=== PATIENT | female | born 1990 | race African-American/Black ===

== ENCOUNTER 2021-04-14 11:05 | Emergency (ER) | payer OTHER ==
[~2021-04-14] VITALS: Ht 180.3 cm; Wt 108.4 kg
--- NOTE | 2021-04-14 11:15 | NUR ---
Patient came in to the er c/o nausea x 3 weeks, 9 weeks . On room air, breathing evenly and unlabored. Connected to the monitor and pulse ox. kept comfortable, will continue to monitor accordingly.
[2021-04-14] MEDS ORDERED: ONDANSETRON HCL/PF 4 MG/2 ML VIAL ONE (11:37)
[2021-04-14] MEDS: ONDANSETRON HCL/PF 4 MG/2 ML VIAL IVP ONE (11:40)
[2021-04-14] MEDS: IV NS 0.9% 1,000 ML BAG IV ONE (11:40)
--- NOTE | 2021-04-14 11:45 | NUR ---
auto technician at bedside for exam.
--- NOTE | 2021-04-14 11:47 | NUR ---
IV access started and blood drawned and sent to lab.
--- NOTE | 2021-04-14 11:50 | NUR ---
urine collected and sent to lab.
[2021-04-14 11:57] LABS: BASOPHILS # (AUTO) 0.1 K/uL (0.0-0.2); EOSINOPHILS % (AUTO) 0.4 % (0.0-6.0); HEMATOCRIT 40 % (33-45); HEMOGLOBIN 13.2 g/dL (11.5-14.8); LYMPHOCYTES # (AUTO) 1.1 K/uL (0.8-4.8); LYMPHOCYTES % (AUTO) 22.8 % (20.0-44.0); MEAN CORPUSCULAR HGB CONC 34 g/dl (31.0-36.0); MEAN CORPUSCULAR VOLUME 86 fL (82-100); MONOCYTES # (AUTO) 0.4 K/uL (0.1-1.30); NEUTROPHILS # (AUTO) 3.2 K/uL (1.8-8.9); NEUTROPHILS % (AUTO) 67.8 % (43.0-81.0); PLATELET COUNT (AUTO) 243 K/uL (150-450); RED BLOOD CELL COUNT(AUTO) 4.58 MIL/uL (4.0-5.2); WHITE BLOOD COUNT (AUTO) 4.8 K/uL (4.3-11.0)
[2021-04-14 12:13] LABS: BILIRUBIN,URINE NEGATIVE (NEGATIVE); COLOR,URINE YELLOW (YELLOW); LEUKOCYTE ESTERASE ,URINE NEGATIVE (NEGATIVE); NITRITE, URINE NEGATIVE (NEGATIVE); PROTEIN,URINE NEGATIVE (NEGATIVE); UGLUCOSE NEGATIVE (NEGATIVE)
[2021-04-14 12:25] LABS: WBC,URINE 0-2 /HPF (0-3)
[2021-04-14 12:28] LABS: BACTERIA,URINE Many /HPF (None Seen)
[2021-04-14 12:28] LABS: CALCIUM, SERUM 8.8 mg/dL (8.5-10.1); CREATININE 0.8 mg/dL (0.6-1.3); POTASSIUM 3.4 mmol/L (3.5-5.1)
[2021-04-14] MEDS ORDERED: ONDA4TAB5 PO (12:38)
[2021-04-14 12:42] VITALS: BP 130/81
--- NOTE | 2021-04-14 12:42 | NUR ---
Patient discharged to home in stable condition. Written and verbal after care instructions given. Patient verbalizes understanding of instruction.IV removed. Catheter intact and site benign. Pressure and 4x4 applied to site. No bleeding noted.
== END 2021-04-14 12:42 | disposition home or self-care (01) ==
LOC: ER 11:18
DX: O21.0 Mild hyperemesis gravidarum (principal); Z3A.09 9 weeks gestation of pregnancy
CPT/HCPCS: 36415; 76856; 80048; 81001; 85025; 87086; 96361; 96374; 99284; J2405; J7030